=== PATIENT | female | born 1975 | race Caucasian/White ===

== ENCOUNTER → 2024-04-11 | Day surgery (SDC) | payer OTHER | END | disposition home or self-care (01) | LOC: JRADUS-SUR 12:43 | PROVIDERS: ATTEND Surgery Surgical Oncology | PROC: BH01ZZZ Plain Radiography of Left Breast (ICD-10-PCS; principal; 2024-04-11) | DX: R92.322 Mammographic fibroglandular density, left breast (principal) | CPT/HCPCS: 19281; A4648; 78195-TC; A9541 ==

== ENCOUNTER 2024-04-12 08:20 | Day surgery (SDC) | payer OTHER ==
[2024-04-06 14:26] VITALS: BMI 29.6
[2024-04-12] MEDS ORDERED: ISOSULFAN BLUE 50 MG/5 ML VIAL SQ ONE (08:57)
[2024-04-12] MEDS ORDERED: BENZOIN/ALOE VERA/STORAX/TOLU 58 ML BOTTLE ONE (08:57)
[2024-04-12] MEDS ORDERED: LIDOCAINE HCL 1%, 10 MG/ML (20ML VIAL) ONE (08:58)
[2024-04-12] MEDS ORDERED: BUPIVACAINE HCL/PF 0.5% (5MG/ML) 10 ML VIAL ONE (08:58)
[2024-04-12] MEDS ORDERED: LIDOCAINE 1%/EPI 1:100000 (20 ML MULTI DOSE VIAL) ONE (08:58)
[2024-04-12] MEDS ORDERED: ACETAMINOPHEN 325 MG TABLET (FP) PO PRN (09:24)
[2024-04-12] MEDS ORDERED: ONDANSETRON 4 MG/2 ML VIAL IVPUSH PRN (09:24)
[2024-04-12] MEDS ORDERED: LACTATED RINGERS SOLUTION 1,000 ML IV SCH (09:30)
[2024-04-12] MEDS ORDERED: ACETAMINOPHEN INJECTION 100 ML ONE (10:01)
[2024-04-12] MEDS ORDERED: MIDAZOLAM HCL 2 MG/2 ML SINGLE DOSE VIAL ONE (10:01)
[2024-04-12] MEDS ORDERED: PROPOFOL 20 ML ONE (10:04)
[2024-04-12] MEDS ORDERED: ONDANSETRON 4 MG/2 ML VIAL ONE ×2 (10:45→10:46)
[2024-04-12] MEDS ORDERED: DEXAMETHASONE SOD PHOSPHATE 4 MG/1 ML VIAL ONE (10:46)
[2024-04-12] MEDS ORDERED: KETOROLAC TROMETHAMINE 30 MG/1 ML VIAL ONE (10:46)
[2024-04-12] MEDS: BUPIVACAINE HCL/PF 0.5% (5 MG/ML) 30 ML VIAL IJ ONE (11:00)
[2024-04-12] MEDS ORDERED: oxyCODONE HCL 5 MG TABLET PO PRN (11:45)
[2024-04-12] MEDS ORDERED: FENTANYL CITRATE/PF 50 MCG/ML VIAL ONE (11:53)
[2024-04-12 12:47] VITALS: PULSE 78; RESP 16
[2024-04-12 13:19] VITALS: BP 115/75; TEMP 97.8
== END 2024-04-12 13:20 | disposition home or self-care (01) ==
LOC: FASU 08:20
PROVIDERS: ATTEND Surgery Surgical Oncology
PROC: 0HBU0ZZ Excision of Left Breast, Open Approach (ICD-10-PCS; principal; 2024-04-12 10:22)
PROC: 07B60ZX Excision of Left Axillary Lymphatic, Open Approach, Diagnostic (ICD-10-PCS; 2024-04-12 10:22)
DX: C50.912 Malignant neoplasm of unspecified site of left female breast (principal)
CPT/HCPCS: 76098-TC-FY; 81025; 88307-TC; 88342-TC; 94760; J0131

== ENCOUNTER 2024-07-04 09:35 | Emergency (ER) | payer OTHER ==
[2024-07-04 09:47] VITALS: BMI 30.1
[2024-07-04 11:21] LABS: HEMATOCRIT 36.6 % (34.1-44.9); MEAN PLT VOLUME 10.5 fl (9.4-12.3)
[2024-07-04 11:22] LABS: HEMOGLOBIN 12.1 g/dL (11.2-15.7); MCHC 33.1 g/dl (32.2-35.5); MEAN CELL VOLUME 93.4 fl (79.4-94.8); PLATELET COUNT 234 x10^3/uL (182-369); RDW 14.5 % (12.2-17.1)
[2024-07-04 11:55] LABS: POTASSIUM 4.2 mmol/L (3.5-5.1)
[2024-07-04 11:57] LABS: ALBUMIN 3.3 g/dl (3.4-5.0); BLOOD UREA NITROGEN 11.6 mg/dL (7-18); CALCIUM 9.5 mg/dL (8.5-10.1)
[2024-07-04 12:00] LABS: CREATININE 0.8 mg/dL (0.55-1.3)
[2024-07-04 12:02] LABS: BILIRUBIN,TOTAL 0.3 mg/dL (0.2-1)
[2024-07-04] MEDS ORDERED: SULFAMETHOXAZOLE/TRIMETHOPRIM 800MG/160MG D.S. TABLET ONE (13:29)
[2024-07-04] MEDS: SULFAMETHOXAZOLE/TRIMETHOPRIM 800MG/160MG D.S. TABLET PO ONE (13:35)
[2024-07-04 13:36] VITALS: BP 118/73; PULSE 92; RESP 20; TEMP 99
== END 2024-07-04 13:36 | disposition home or self-care (01) ==
LOC: JER 09:35
DX: L03.221 Cellulitis of neck (principal); L29.9 Pruritus, unspecified
CPT/HCPCS: 36415; 80053; 85025; 87040; 87070; 87186; 87205; 99284-25

== ENCOUNTER 2024-07-17 10:54 | Day surgery (SDC) | payer OTHER ==
[2024-07-17 11:51] LABS: ABSOLUTE IMMATURE GRANULOCYTES 0.13 x10^3/uL (0.0-0.031); BASOPHILS # 0.03 x10^3/uL (0.01-0.08); HEMOGLOBIN 12.9 g/dL (11.2-15.7); MCHC 33.1 g/dl (32.2-35.5); MEAN CELL VOLUME 93.8 fl (79.4-94.8); MEAN PLT VOLUME 11.3 fl (9.4-12.3); MONOCYTE # 0.37 x10^3/uL (0.24-0.86); MONOCYTE % 2.1 % (4.7-12.5); PLATELET COUNT 244 x10^3/uL (182-369); RDW 15.7 % (12.2-17.1)
[2024-07-17 12:16] LABS: CHLORIDE 109 mmol/L (98-107); POTASSIUM 4.4 mmol/L (3.5-5.1); SODIUM 139 mmol/L (136-145)
[2024-07-17 12:18] LABS: ALBUMIN 3.8 g/dl (3.4-5.0); CALCIUM 9.5 mg/dL (8.5-10.1)
[2024-07-17 12:19] LABS: ANION GAP 10 mmol/L (4-13); BLOOD UREA NITROGEN 12.8 mg/dL (7-18); CO2 21 mmol/L (21-32); GLUCOSE,RANDOM 112 mg/dL (74-106)
[2024-07-17 12:21] LABS: BILIRUBIN,DIRECT 0.1 mg/dL (0.0-0.2); CREATININE 0.8 mg/dL (0.55-1.3); SGOT/AST 13 U/L (15-37); SGPT/ALT 30 U/L (13-61)
[2024-07-17 12:23] LABS: BILIRUBIN,TOTAL 0.4 mg/dL (0.2-1); TOT PROT 6.7 g/dl (6.4-8.2)
[2024-07-17 12:24] LABS: ALK PHOS 61 U/L (45-117)
[2024-07-17] MEDS: DEXAMETHASONE SODIUM PHOSPHATE 10 MG in SODIUM CHLORIDE 50 ML IVPB ONE (13:37)
[2024-07-17] MEDS: PALONOSETRON HCL 0.25 MG/5 ML VIAL IVPUSH ONE (13:37)
[2024-07-17] MEDS: DOCETAXEL IV ONE (13:59)
[2024-07-17] MEDS: SODIUM CHLORIDE IV ONE (13:59)
[2024-07-17] MEDS: PORTA CATH FLUSH 10 ML IVPUSH PRN (16:10)
[2024-07-17 16:14] VITALS: TEMP 98.1
[2024-07-17 16:23] VITALS: BP 125/79; PULSE 88; RESP 18
== END 2024-07-17 16:10 | disposition home or self-care (01) ==
LOC: JONCCHEMO 10:54
PROVIDERS: ATTEND Internal Medicine Hematology & Oncology
PROC: 3E013GC Introduction of Other Therapeutic Substance into Subcutaneous Tissue, Percutaneous Approach (ICD-10-PCS; principal; 2024-07-17)
DX: C50.412 Malignant neoplasm of upper-outer quadrant of left female breast (principal); Z17.0 Estrogen receptor positive status [ER+]; Z76.89 Persons encountering health services in other specified circumstances
CPT/HCPCS: 36415; 80048; 80076; 85025; 96372; J9074

== ENCOUNTER 2024-08-08 12:17 | Day surgery (SDC) | payer OTHER ==
[2024-08-08] MEDS: PEGFILGRASTIM-CBQV (UDENYCA) 6 MG/0.6 ML SYRINGE SQ ONE (12:09)
[2024-08-08 15:37] VITALS: BP 120/70; PULSE 95; RESP 16; TEMP 98.2
== END 2024-08-08 15:38 | disposition home or self-care (01) ==
LOC: JONCCHEMO 12:17
PROVIDERS: ATTEND Internal Medicine Hematology & Oncology
PROC: 3E013GC Introduction of Other Therapeutic Substance into Subcutaneous Tissue, Percutaneous Approach (ICD-10-PCS; principal; 2024-08-08)
DX: C50.412 Malignant neoplasm of upper-outer quadrant of left female breast (principal); Z76.89 Persons encountering health services in other specified circumstances
CPT/HCPCS: 96372; Q5111

== ENCOUNTER → 2024-11-15 | Day surgery (SDC) | payer OTHER | END | disposition home or self-care (01) | LOC: JRADIR 12:19 | PROVIDERS: ATTEND Internal Medicine Hematology & Oncology | PROC: 0JPT0WZ Removal of Totally Implantable Vascular Access Device from Trunk Subcutaneous Tissue and Fascia, Open Approach (ICD-10-PCS; principal; 2024-11-15) | DX: Z45.2 Encounter for adjustment and management of vascular access device (principal) | CPT/HCPCS: 36590 ==